=== PATIENT | female | born 1990 | race Caucasian/White ===

== ENCOUNTER 2024-03-29 09:29 | Outpatient (CLI) | payer MEDICAID, SELFPAY ==
[2024-03-29] VITALS (7 sets, daily range): BP systolic 124; BP diastolic 70; PULSE 74–86; RESP 18–100; TEMP 36.7; O2SAT 99–100; BMI 28.7
--- NOTE | 2024-03-29 09:34 | XR_ITS ---
Examination: Complete OB ultrasound greater than 14 weeks Date and time of exam: March 29, 2024 1018 hours INDICATIONS: No care, unknown size and dates Findings: Viable intrauterine single fetus with single amniotic sac presentation cephalic Cardiac motion 135 BPM Placenta posterior grade 3 Umbilical cord insertion 3 vessel seen Amniotic fluid index 7.3 cm spine maternal right Ovaries obscured by bowel gas. Composite estimated gestational age based on BPD, head circumference, abdominal circumference, femur length is 36 weeks 2 days Estimated weight 2938 g. Survey of intracranial anatomy, spinal anatomy, abdominal anatomy, four-chamber heart performed with no abnormalities identified. Impression: Viable intrauterine gestation cephalic presentation Estimated gestational age 36 weeks 2 days Estimated weight 2938 g.
[2024-03-29 10:30] LABS: Basophils # (Auto) 0.1 Thou/mm3 (0.0-0.2); Basophils % (Auto) 1 % (0-2.5); Eosinophils # (Auto) 0.1 Thou/mm3 (0.0-0.5); Eosinophils % (Auto) 2 % (0-10); Hematocrit 28.1 % (36.0-46.0); Hemoglobin 9.5 g/dL (12.0-16.0); Immature Granulocytes % (Auto) 2 % (0-0); Immature Granulocytes Auto 0.11 Thou/mm3 (0.00-0.00); Lymphocytes # (Auto) 1.5 Thou/mm3 (1.0-4.8); Lymphocytes % (Auto) 22 % (10-50); Mean Corpuscular HGB Conc 33.8 g/dl (31.0-37.0); Mean Corpuscular Hemoglobin 29.5 pg (25.0-35.0); Mean Corpuscular Volume 87 fL (80-100); Monocytes # (Auto) 0.7 Thou/mm3 (0.0-0.8); Monocytes % (Auto) 10 % (0-12); Neutrophils # (Auto) 4.3 Thou/mm3 (1.8-7.7); Neutrophils % (Auto) 64 % (37-80); Nucleated Red Blood Cell % 0 /100 WBC (0); Platelet Count 212 Thou/mm3 (140-440); RDW Standard Deviation 45.3 fL (36.4-46.3); Red Blood Count 3.22 Miln/mm3 (4.00-5.20); White Blood Count 6.7 Thou/mm3 (3.6-11.0)
[2024-03-29 11:29] LABS: Hepatitis B Surface Antigen Non Reactive (Non React); Rubella, IgG Antibody Reactive (Immune)
[2024-03-29 11:32] LABS: Syphilis Reactive (Nonreactive)
[2024-03-29 11:34] LABS: MHATP/TP-PA* See Sep Rpt
[2024-03-29 11:44] LABS: Amphetamine/Metham Scrn,Ur OB Positive (Negative); Benzoylecgonine Screen, Ur OB Negative (Negative); Opiate Screen,Urine OB Negative (Negative); THC Screen,Urine OB Negative (Negative)
[2024-03-29 11:45] LABS: Amphetamines/Metham U Confirm* See Sep Rpt
[2024-03-29 11:48] LABS: HIV (1&2) Antibody Rapid Non-Reactive
[2024-03-29 14:11] LABS: Chlamydia trachomatis PCR Negative (Not Detect); Neisseria Gonorrhoeae DNA PCR Negative (Not Detect); Trichomonas Negative (Negative)
== END 2024-03-29 10:51 | disposition home or self-care (01) ==
LOC: S4S1 09:31 → S4SX 09:32
PROVIDERS: Referring Provider Obstetrics & Gynecology; Visit Provider Advanced Practice Midwife
DX: Z34.83 Encounter for supervision of other normal pregnancy, third trimester (principal); Z36.9 Encounter for antenatal screening, unspecified; Z3A.36 36 weeks gestation of pregnancy
CPT/HCPCS: 36415; 59025; 76805; 80307; 85025; 86703; 86762; 86780; 86850; 86900; 86901; 87340; 87491; 87591; 87661

== ENCOUNTER 2024-04-13 05:58 | Inpatient (IN) | payer MEDICAID, SELFPAY ==
[2024-04-13] VITALS (17 sets, daily range): BP systolic 102–146; BP diastolic 63–91; PULSE 64–85; RESP 16–19; TEMP 36.4–36.8; O2SAT 97–98; BMI 28.8
[2024-04-13 06:31] LABS: Basophils # (Auto) 0.1 Thou/mm3 (0.0-0.2); Basophils % (Auto) 1 % (0-2.5); Eosinophils # (Auto) 0.2 Thou/mm3 (0.0-0.5); Eosinophils % (Auto) 2 % (0-10); Hematocrit 34.5 % (36.0-46.0); Hemoglobin 12.1 g/dL (12.0-16.0); Immature Granulocytes % (Auto) 2 % (0-0); Immature Granulocytes Auto 0.25 Thou/mm3 (0.00-0.00); Lymphocytes # (Auto) 2.5 Thou/mm3 (1.0-4.8); Lymphocytes % (Auto) 18 % (10-50); Mean Corpuscular HGB Conc 35.1 g/dl (31.0-37.0); Mean Corpuscular Hemoglobin 29.8 pg (25.0-35.0); Mean Corpuscular Volume 85 fL (80-100); Monocytes # (Auto) 1.1 Thou/mm3 (0.0-0.8); Monocytes % (Auto) 8 % (0-12); Neutrophils # (Auto) 9.7 Thou/mm3 (1.8-7.7); Neutrophils % (Auto) 70 % (37-80); Nucleated Red Blood Cell % 0 /100 WBC (0); Platelet Count 280 Thou/mm3 (140-440); RDW Standard Deviation 46.5 fL (36.4-46.3); Red Blood Count 4.06 Miln/mm3 (4.00-5.20); White Blood Count 13.8 Thou/mm3 (3.6-11.0)
[2024-04-13] MEDS: OXYTOCIN in NS 20 units 20 UNIT/1,000 ML BAG 125 UNIT IV (06:31)
[2024-04-13] MEDS: MISOPROSTOL 200 mCg TABLET 800 MCG PR (06:31)
[2024-04-13] MEDS: OXYTOCIN INJ 10 UNIT/ML VIAL IM (06:31)
[2024-04-13] MEDS: IBUPROFEN TAB 400 MG TABLET 800 MG PO ×2 (06:32→16:57)
[2024-04-13] MEDS: BENZO/LANO/ALOE (Dermoplast) 60 GM CAN 1 SPRAY TOP (06:32)
[2024-04-13] MEDS: TRANEXAMIC ACID 1,000 MG IVPB 1,000 MG/100 ML BAG 200 MG IV (06:34)
--- NOTE | 2024-04-13 07:02 | PD.LDHP ---
Documentation for date of: 04/13/24 OB Labor/Induct. HPI History of Present Illness Chief complaint: labor : 7 Para: 5 Term pregnancies: 5 pregnancies: 0 Living children: 5 History of Abortions: Spontaneous and Elective: 1 History of Vaginal deliveries: 5 History of sections: No History of : No Date of last menstrual period: 07/19/23 ELISABETH: 04/24/24 Gestational Age (weeks): 38 Gestational Age (days): 5 Gestational age based on last menstrual period: 38 History of present illness: This is a 33-year-old 7 para 6 admit to labor and delivery with complaints of labor since 3 in the morning. Patient had 1 visit at [facility]. And she had 1 ultrasound. [facility]. The ultrasound showed vertex presentation and normal anatomy. Patient has poor dates. Previous history of positive meth screen however she denies use. Patient is O+, antibody screen negative, RPR reactive, TPA+. Patient has a history of a positive RPR in the past and good treatment with partner as well., rubella immune, HIV negative. Hepatitis B negative. Hep C negative. GC and Chlamydia were negative. 1 hour GTT was not done. Carrier screens were not done. And GBS is negative. Denies surgeries. Denies coexistent medical problem History of Present Dating criteria: based on LMP only Adequate Care: No Ultrasounds: normal mid trimester US (3rd trimester) Obstetrical complications: none Medical complications: none Review of Systems Review of Systems Systems Reviewed: All systems reviewed, normal except as documented Past Medical History Surgical History SURGICAL: Negative Section Meds Home Medications and Allergies Home Medications ?Medication ?Instructions ?Recorded ?Confirmed ?Type [id number] 1 mg 2 tab PO DAILY 03/29/24 03/29/24 History tablet Allergies Allergy/AdvReac Type Severity Reaction Status Date / Time No Known Allergies Allergy Unknown Verified 04/13/24 06:10 OB Exam Physical Exam Vital signs: Pulse BP 73 136/83 H 04/13/24 06:59 04/13/24 06:59 Narrative: Alert and oriented. Responds to commands. Normal heart rate and rhythm. Lungs are clear no wheezes. Gravid abdomen. Gynecoid pelvis. Small hemorrhoid. Exam admission was complete, complete, -1. Bag water intact. Vertex. heart rate was category 1 with accelerations and moderate variability and contractions every 3 minutes and moderate Detailed Labor and Delivery Exam Dilation (cm): 10 Effacement (%): 90 Cervix position: mid station: -1 Consistency: soft Presentation: Vertex Cervical ripeness score: 8 Membranes: intact Baseline heart rate: 145 monitor accelerations: 15x15 monitor decelerations: None intermodal customer service variability: Moderate (11-25) Contraction frequency (min): 3 Contraction duration (sec): 30 Tachysystole: No Contraction intensity: Moderate OB Results Labs 04/13/24 06:13 Labs: Short CBC 04/13/24 Range/Units 06:13 WBC 13.8 H (3.6-11.0) Thou/mm3 Hgb 12.1 (12.0-16.0) g/dL Hct 34.5 L (36.0-46.0) % Plt Count 280 D (140-440) Thou/mm3 Impressions Impression: labor OB Assessment & Plan Assessment and Plan (1) Normal labor and delivery: Status: Acute Additional Plan Plan: anticipate NVD and consult MD botello
--- NOTE | 2024-04-13 07:09 | OBDSUM_ITS ---
Data (King) Data Hx Section: No Para: 5 Delivery Data (King) Labor Data Stimulated/Augmented: Yes Method: AROM ROM Date: 04/13/24 ROM Time: 06:24 Rupture Type: AROM Amniotic Fluid: Particulate Meconium Delivery Data EDC: 04/24/24 EDC calculated by:: LMP Labor Onset Stage 1 Date: 04/13/24 Labor Onset Stage 1 Time: 03:00 Labor Onset Stage 2 Date: 04/13/24 Labor Onset Stage 2 Time: 06:25 Delivery Date: 04/13/24 Delivery Time: 06:27 Gestational age (weeks): 38 Gestational age (days): 5 Placenta Delivery Date: 04/13/24 Placenta Delivery Time: 06:39 Delivered by: Kelly Johnson Delivery nurse: Yun Leal Other staff at delivery: Nursery Nurse Other staff at delivery: Nurse Other staff at delivery: Nurse Other staff at delivery: Aga Torres Other staff at delivery: Lalita Joseph Other staff at delivery: WOO LAYNE Delivery Method Delivery: Vaginal Delivery Type: Spontaneous Presentation: Vertex Position: OA Anesthesia Type Primary Anesthesia: None Delivery Room Medications Post Delivery Medications: Tocolytics and Cytotec Placenta Placenta Delivery: Spontaneous (inspected complete) Placenta Sent for Examination: No Episiotomy Episiotomy: None Lacerations #1: Vaginal: 1st degree (small laceration both vag wall and floor, no repair) EBL Estimated blood loss (ml): 400 Umbilical Cord Umbilical Vessels: 3 [place] Data (King) Data Infant Gender: Female Infant Weight Grams: 3270 1 Minute Total: 9 5 Minute Total: 9
[2024-04-13 07:36] LABS: Syphilis Reactive (Nonreactive)
[2024-04-13 07:37] LABS: MHATP/TP-PA* See Sep Rpt
[2024-04-13 07:49] LABS: Amphetamine/Metham Scrn,Ur OB Negative (Negative); Benzoylecgonine Screen, Ur OB Negative (Negative); Opiate Screen,Urine OB Negative (Negative); THC Screen,Urine OB Positive (Negative)
[2024-04-13 07:50] LABS: THC U Confirm* See Sep Rpt
[2024-04-13] MEDS: ACETAMINOPHEN 325 MG TABLET 650 MG PO (12:14)
[2024-04-13] MEDS: DOCUSATE SOD 100 MG CAPSULE PO ×2 (12:14→21:15)
[2024-04-13 17:23] LABS: Basophils # (Auto) 0.1 Thou/mm3 (0.0-0.2); Basophils % (Auto) 1 % (0-2.5); Eosinophils # (Auto) 0.1 Thou/mm3 (0.0-0.5); Eosinophils % (Auto) 1 % (0-10); Hematocrit 29.4 % (36.0-46.0); Hemoglobin 10.1 g/dL (12.0-16.0); Immature Granulocytes % (Auto) 1 % (0-0); Immature Granulocytes Auto 0.17 Thou/mm3 (0.00-0.00); Lymphocytes # (Auto) 1.9 Thou/mm3 (1.0-4.8); Lymphocytes % (Auto) 12 % (10-50); Mean Corpuscular HGB Conc 34.4 g/dl (31.0-37.0); Mean Corpuscular Hemoglobin 29.7 pg (25.0-35.0); Mean Corpuscular Volume 87 fL (80-100); Monocytes # (Auto) 1.1 Thou/mm3 (0.0-0.8); Monocytes % (Auto) 7 % (0-12); Neutrophils # (Auto) 12.5 Thou/mm3 (1.8-7.7); Neutrophils % (Auto) 79 % (37-80); Nucleated Red Blood Cell % 0 /100 WBC (0); Platelet Count 223 Thou/mm3 (140-440); RDW Standard Deviation 47.2 fL (36.4-46.3); White Blood Count 15.9 Thou/mm3 (3.6-11.0)
[2024-04-14 00:59] VITALS: BP 115/68; PULSE 68; RESP 16; TEMP 36.6; O2SAT 98
[2024-04-14 03:50] VITALS: BP 110/66; PULSE 78; RESP 18; TEMP 36.7; O2SAT 98
[2024-04-14] MEDS: IBUPROFEN TAB 400 MG TABLET 800 MG PO (07:14)
[2024-04-14 07:59] VITALS: BP 104/66; PULSE 79; RESP 18; TEMP 36.7; O2SAT 98
[2024-04-14] MEDS: DOCUSATE SOD 100 MG CAPSULE PO (08:24)
--- NOTE | 2024-04-14 08:30 | ESPR_ITS ---
Subjective Subjective Interval history: 33 yo now [id number] s/p at term. PPD#1 Patient doing well no issues . Baby at beside. Pain well controlled, bleeding within normal limits. Voiding without issues. No lightheadedness when walking. Exam Vital Signs Temp Pulse Resp BP Pulse Ox O2 Del Method 98.0 F 79 18 104/66 98 Room Air 04/14/24 07:59 04/14/24 07:59 04/14/24 07:59 04/14/24 07:59 04/14/24 07:59 04/14/24 07:59 Narrative Exam General: NAD RESP: normal work of breathing Abdomen: soft, gravid, non-tender, no rebound or guarding, Fundus firm and at approximate levl of the umbilicus Extremities: no pain with palpation of calves and no unilateral swelling Objective Labs 04/13/24 16:28 Labs: Laboratory Results - last 24 hr 04/13/24 04/13/24 06:13 16:28 WBC 15.9 H RBC 3.40 L Hgb 10.1 L D Hct 29.4 L MCV 87 MCH 29.7 MCHC 34.4 RDW Std Deviation 47.2 H Plt Count 223 D Neut % (Auto) 79 Lymph % (Auto) 12 [place] % (Auto) 7 Eos % (Auto) 1 Baso % (Auto) 1 Neut # (Auto) 12.5 H Lymph # (Auto) 1.9 [place] # (Auto) 1.1 H Eos # (Auto) 0.1 Baso # (Auto) 0.1 Immature Gran # (Auto) 0.17 H Absolute Nucleated RBC 0.00 Immature Gran % 1 H Nucleated RBC % 0 T.pallidum Ab (MHA) See Sep Rpt Blood Type O Positive Antibody Screen NEGATIVE Assessment & Plan Problem List (1) Normal labor and delivery: Status: Acute Plan Comment Plan Comment: Plan: -Meeting all milestones, plan for discharge today -Hemodynamically stable -Regular diet - Ferrous sulfate for anemia -Encourage ambulation Time Spent With Patient Time: Total time spent is greater than 50% in coordination of care (as documented) at patient's floor/unit and/or counseling patient:
--- NOTE | 2024-04-14 08:32 | ESDS_ITS ---
DS: Providers Provider Date of admission: 04/13/24 06:07 Primary care physician: Physician No Primary/Family Admitting Provider: Renate Iglesias MD Attending Provider on Admission: Patrizia Augustine MD Consults: 04/13/24 07:27 Referral Routine Comment: Attending Provider on DC: Patrizia Augustine MD Discharging Provider: Patrizia Augustine MD DS: Diagnosis Problem List Completed Was Problem List Reviewed/Reconciled?: Yes Summary/Hosp Course Brief History: This is a 33-year-old 7 para 6 admit to labor and delivery with complaints of labor since 3 in the morning. Patient had 1 visit at [facility]. And she had 1 ultrasound. [facility]. The ultrasound showed vertex presentation and normal anatomy. Patient has poor dates. Previous history of positive meth screen however she denies use. Patient is O+, antibody screen negative, RPR reactive, TPA+. Patient has a history of a positive RPR in the past and good treatment with partner as well., rubella immune, HIV negative. Hepatitis B negative. Hep C negative. GC and Chlamydia were negative. 1 hour GTT was not done. Carrier screens were not done. And GBS is negative. Denies surgeries. Denies coexistent medical problem Patient underwent uncomplicated delivering female infant 3270g, Apgars 9/9 with first degree laceration. course was uncomplicated and she was meeting all milestones and discharged on PPD1 Time Spent with Patient Time attestation: Total time spent providing and/or coordinating discharge services: Exam Vital Signs Temp Pulse Resp BP Pulse Ox O2 Del Method 98.0 F 79 18 104/66 98 Room Air 04/14/24 07:59 04/14/24 07:59 04/14/24 07:59 04/14/24 07:59 04/14/24 07:59 04/14/24 07:59 Narrative Exam General: NAD RESP: normal work of breathing Abdomen: soft, gravid, non-tender, no rebound or guarding, Fundus firm and at approximate levl of the umbilicus Extremities: no pain with palpation of calves and no unilateral swelling Discharge Plan Plan Patient Disposition: HOME (Self Care) Prescriptions/Referrals Prescriptions/Med Rec: No Action 1 mg Tablet 2 tab PO DAILY Referrals: No Primary/Family,Physician [Primary Care Provider] - Patient/Caregiver Discharge Instructions Discharge Activity: activity as tolerated Education Materials: After a Vaginal Print Language: Zambian Stand Alone Forms: Thao Award Info., Patient Portal Info Letter Discharge Order Discharge Orders: Discharge (Routine); Ordered 04/14/24 Ordered By: Patrizia Augustine Planned Discharge Date 04/14/24
[2024-04-14] MEDS: MEDRoxyPROGESTERone ACET Inj 150 MG/ML SYRINGE IM (10:33)
--- NOTE | 2024-04-14 14:12 | PC.NURSE ---
Cleared from child protective services social worker
--- NOTE | 2024-04-14 18:54 | PC.CC ---
Melina Thompson is a 33-year-old female admitted for labor and delivery care. Assembly Operator made contact with Pt at bedside to complete ob assessment and discuss discharge disposition. Role and reason for the contact was explained to Pt. Demographic information was verified. Pt identified [facility] [phone] as surrogate decision maker. Pt is independent with all ADLs, no source of DME. PCP is DORET[facility]. At time of discharge patient will return home, family will provide transportation. Discharge Plan: Home Next of Kin: [facility] [phone] PCP: D[facility]
== END 2024-04-14 14:37 | disposition home or self-care (01) | DRG 560 ==
LOC: S4SX 08:47 → S4NX 08:51
PROVIDERS: Advanced Practice Midwife; Admitting Provider Student in an Organized Health Care Education/Training Program; Visit Provider Obstetrics & Gynecology
DX: O77.0 Labor and delivery complicated by meconium in amniotic fluid (principal); Z37.0 Single live birth; Z3A.38 38 weeks gestation of pregnancy; A53.0 Latent syphilis, unspecified as early or late; O98.12 Syphilis complicating childbirth; O70.0 First degree perineal laceration during delivery; O90.81 Anemia of the puerperium
CPT/HCPCS: 36415; 59409; 80307; 85025; 86780; 86850; 86900; 86901; J1050; J2590; J3490; S0191; A9270